=== PATIENT | female | born 1965 ===

== ENCOUNTER 2019-04-03 13:02 | Outpatient (CLI) | payer OTHER | END 2019-04-03 13:07 | disposition home or self-care (01) | LOC: MAMO-SONO 13:02 | DX: Z12.31 Encounter for screening mammogram for malignant neoplasm of breast (principal); N60.11 Diffuse cystic mastopathy of right breast; N60.12 Diffuse cystic mastopathy of left breast ==

== ENCOUNTER → 2019-04-03 | Outpatient (CLI) | payer OTHER | END | disposition home or self-care (01) | LOC: NUCLEAR 13:00 | DX: M81.0 Age-related osteoporosis without current pathological fracture (principal) ==